=== PATIENT | female | born 1955 | race Caucasian/White ===

== ENCOUNTER 2018-02-13 12:05 | Emergency (ER) | payer MEDICAID, OTHER ==
[~2018-02-13] VITALS: Ht 149.9 cm; Wt 64.1 kg
[2018-02-13 12:19] VITALS: BP 137/58
[2018-02-13] MEDS ORDERED: METH4TAB81 PO (13:36)
[2018-02-13] MEDS ORDERED: BENZ-16 PO (13:36)
[2018-02-13] MEDS ORDERED: AMOX-580 PO (13:36)
== END 2018-02-13 13:51 | disposition home or self-care (01) ==
LOC: ER 12:06
DX: J45.998 Other asthma (principal); Z88.8 Allergy status to other drugs, medicaments and biological substances; Z79.899 Other long term (current) drug therapy
CPT/HCPCS: 71046; 93005; 99283

== ENCOUNTER 2022-10-11 09:38 | Emergency (ER) | payer MEDICARE, MEDICAID ==
[~2022-10-11] VITALS: Ht 160 cm; Wt 61.4 kg
[2022-10-11 09:38] VITALS: BP 160/90; PULSE 76; RESP 16; TEMP 98; O2SAT 98
[~2022-10-11 09:38] MED LIST: METH4TAB81 PO
[2022-10-11] MEDS ORDERED: CEFD300C3 PO (11:37)
== END 2022-10-11 11:57 | disposition home or self-care (01) ==
LOC: ER 09:38
DX: H66.91 Otitis media, unspecified, right ear (principal); Z88.1 Allergy status to other antibiotic agents; Z79.899 Other long term (current) drug therapy
CPT/HCPCS: 99283